=== PATIENT | male | born 1970 | race Hispanic/Latino ===

== ENCOUNTER 2019-09-08 11:35 | Emergency (ER) | payer OTHER, SELFPAY ==
--- NOTE | ~2019-09-08 | XR_ITS ---
EXAMINATION: XR wrist LT min 3V DATE: 09/08/2019 12:27 INDICATION: Left wrist pain. Fall. TECHNIQUE: 4 views of left wrist were obtained. COMPARISON: None. FINDINGS: Bone alignment is normal. No acute fracture. 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 There is a 3 mm fragment of heterotopic ossification dorsal to the distal radius. IMPRESSION: 1. No acute fracture. Reviewed, dictated and finalized at location A. LITIES DIRECTOR IMPRESSION: 1. No acute fracture.
--- NOTE | ~2019-09-08 | XR_ITS ---
EXAMINATION: XR wrist RT min 3V DATE: 09/08/2019 12:27 INDICATION: Right wrist pain. Fall. TECHNIQUE: 4 views of right wrist were obtained. COMPARISON: None. FINDINGS: Bone alignment is normal. No acute fracture. Joint spaces are normal. There is a 6 mm fragm ent of heterotopic ossification dorsal to the carpus. IMPRESSION: 1. No acute fracture. Reviewed, dictated and finalized at location A. ERS LICENSE EXAMINER IMPRESSION: 1. No acute fracture.
[2019-09-08 11:54] VITALS: BP 168/81; PULSE 80; RESP 16; TEMP 36.7; O2SAT 98
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
--- NOTE | 2019-09-08 13:13 | PC.NURSE ---
1154- Pt presents with home braces on bilateral wrists.
== END 2019-09-08 12:50 | disposition home or self-care (01) ==
PROVIDERS: Emergency Provider Registered Nurse; PCP Internal Medicine
DX: S63.502A Unspecified sprain of left wrist, initial encounter (principal); S66.912A Strain of unspecified muscle, fascia and tendon at wrist and hand level, left hand, initial encounter; W05.0XXA Fall from non-moving wheelchair, initial encounter; S63.501A Unspecified sprain of right wrist, initial encounter; S66.911A Strain of unspecified muscle, fascia and tendon at wrist and hand level, right hand, initial encounter; Z99.3 Dependence on wheelchair; G82.20 Paraplegia, unspecified; F17.200 Nicotine dependence, unspecified, uncomplicated
CPT/HCPCS: 73110; 99214; G0463

== ENCOUNTER → 2020-01-23 09:11 | Outpatient (CLI) | payer OTHER, SELFPAY ==
--- NOTE | ~2020-01-23 | XR_ITS ---
XR chest 2V DATE: 01/23/2020 09:30 INDICATION: Chest pain TECHNIQUE: AP and lateral views COMPARISON: 05/20/2004 2 view chest FINDINGS: Postoperative change of the chest is noted. Heart size is within normal range. No hilar or mediastinal enlargement is evident. No pulmonary infiltrate or consolidation, pleural effusion or pul monary vascular congestion or pneumothorax. IMPRESSION: Postoperative chest; no active cardiopulmonary disease Reviewed, dictated and finalized at location B.
== END ==
PROVIDERS: PCP Internal Medicine; Visit Provider Internal Medicine
DX: R07.89 Other chest pain (principal)
CPT/HCPCS: 71046

== ENCOUNTER → 2020-11-02 01:34 | Outpatient (CLI) | payer OTHER, SELFPAY ==
[2020-11-02 19:40] LABS: SARS-CoV-2 RNA PCR Negative
== END ==
PROVIDERS: PCP Internal Medicine; Visit Provider Internal Medicine Gastroenterology
DX: Z01.812 Encounter for preprocedural laboratory examination (principal); Z20.822 Contact with and (suspected) exposure to COVID-19
CPT/HCPCS: C9803; U0003; U0005

== ENCOUNTER 2020-11-05 01:12 | Day surgery (SDC) | payer OTHER, SELFPAY ==
[2020-10-23 14:58] VITALS: BMI 29.4
[2020-11-05 07:52] VITALS: BP 166/79; PULSE 83; RESP 18; TEMP 36.4; O2SAT 97; BMI 29.7
[2020-11-05] MEDS: LACTATED RINGERS 1,000 ML 150 ML IV CONT (08:05)
--- NOTE | 2020-11-05 08:30 | WPDANESEPPF ---
Anes - Initial Pre Proc Eval Procedure: Operation Date: 11/05/20 09:00 Proposed Procedures p Screening Colonoscopy - Gagan Pickard MD Date/Time: 11/05/20 08:30 Surgeon: Gagan Pickard MD Pre Op Diagnosis: Neoplasm Screening Patient Data Age: 50 Gender: M Height: 6 ft 2 in Weight: 105 kg Last Vital Signs Temp 97.6 F 11/05/20 07:52 Pulse 83 11/05/20 07:52 Resp 18 11/05/20 07:52 BP 166/79 H 11/05/20 07:52 Pulse Ox 97 11/05/20 07:52 Allergies Allergy/AdvReac Type Severity Reaction Status Date / Time Penicillins Allergy Unknown Hives Verified 11/05/20 07:51 Home Medications Medication Instructions Recorded Confirmed Type mometasone 50 mcg/actuation nasal 2 spray NASAL DAILY #17 gm 02/03/20 11/05/20 Rx spray amlodipine 5 mg tablet 5 mg PO DAILY #30 tablet 06/07/20 11/05/20 Rx atorvastatin 20 mg tablet 20 mg PO DAILY #90 tablet 06/07/20 11/05/20 Rx Patient hx anesthesia problems: none Family hx anesthesia problems: none PMFSH Past Medical History Medical History (Updated 06/25/20 @ 11:58 by FARTUN Tan) Hyperlipidemia Paraplegia Screening for colon cancer Surgical History Surgical History S/P aorta repair Family History Family History Father Patient's father is in good health Sibling Patient's sister is in good health Mother Family history of coronary artery disease Social History Social History Smoking packs per day: 0.5 Smoking cigarettes per day: 10.0 Years smoked: 30 Smoking pack-years: 15.00 Smoking status: Current every day smoker Tobacco type: cigarettes and cigars Second hand tobacco smoke exposure: No Alcohol intake: current Drinks per week: 6 Alcohol use details: BEER Living arrangements: alone Gender identity (if verbalized by the patient): Male Spiritual care concerns: No Anes - Eval Final PreProcedure Day of Procedure 11/05/20 08:30 Patient weight: overweight Heart: regular rate and rhythm Lungs: clear to auscultation Airway: Mallampati scale class II Neurological: alert and oriented Last oral intake: >/= 8 hours ASA classification: III Emergent: no Anesthetic plan: proceed Anesthesia type and monitoring: general GIVS and standard monitoring Informed Consent: The patient's anesthetic plan and its attendant risks and benefits were discussed with the patient/family/POA. Questions were solicited and answers provided to the satisfaction of the patient/family/POA.
--- NOTE | 2020-11-05 08:40 | PM.HPGS ---
History of Present Illness History of Present Illness Consent: Risks, benefits, and alternatives have been discussed and questions answered. Patient agrees to proceed with procedure. Chief complaint: Neoplasm Screening Narrative: Clifford Waterman is a 50 year old male here for first screening colonoscopy Review of Systems Constitutional: Constitutional: Denies headache(s) and Denies weakness Eyes: Eyes: Denies blurry vision ENT: Reports Normal hearing present, Denies headache(s) and Denies neck pain Cardiovascular: Cardiovascular: Denies chest pain and Denies dyspnea Respiratory: Respiratory: Denies dyspnea Gastrointestinal: Gastrointestinal: Reports no additional gastrointestinal complaints Genitourinary: Genitourinary: Denies dysuria Musculoskeletal: Musculoskeletal: Denies neck pain Integumentary/Breasts: Skin/Breast: Denies dry skin Neurologic: Reports Normal hearing present, Denies headache(s) and Denies weakness Psychiatric: Psychiatric: Denies anxiety Endocrine: Endocrine: Denies change in body appearance Hematologic/Lymphatic: Hematologic/Lymphatic: Denies easy bleeding Allergic/Immunologic: Allergic/Immunologic: Denies urticaria PMF Past Medical History Medical History (Updated 06/25/20 @ 11:58 by FARTUN Tan) Hyperlipidemia Paraplegia Screening for colon cancer Surgical History Surgical History S/P aorta repair Family History Family History Father Patient's father is in good health Sibling Patient's sister is in good health Mother Family history of coronary artery disease Social History Social History Smoking packs per day: 0.5 Smoking cigarettes per day: 10.0 Years smoked: 30 Smoking pack-years: 15.00 Smoking status: Current every day smoker Tobacco type: cigarettes and cigars Second hand tobacco smoke exposure: No Alcohol intake: current Drinks per week: 6 Alcohol use details: BEER Living arrangements: alone Gender identity (if verbalized by the patient): Male Spiritual care concerns: No Meds Home Medications and Allergies Home Medications Medication Instructions Recorded Confirmed Type mometasone 50 mcg/actuation nasal 2 spray NASAL DAILY #17 gm 02/03/20 11/05/20 Rx spray amlodipine 5 mg tablet 5 mg PO DAILY #30 tablet 06/07/20 11/05/20 Rx atorvastatin 20 mg tablet 20 mg PO DAILY #90 tablet 06/07/20 11/05/20 Rx Allergies Allergy/AdvReac Type Severity Reaction Status Date / Time Penicillins Allergy Unknown Hives Verified 11/05/20 07:51 Vital Signs Vital Signs - 24 hr 11/05/20 07:52 Temperature 97.6 F Pulse Rate 83 Respiratory Rate 18 Blood Pressure 166/79 H Pulse Oximetry 97 Exam Const: General: comfortable and no acute distress HENMT: General nose exam: Normal nares present Eyes: General: appearance normal, both eyes and all related structures Neck: Neck: no JVD Resp: Auscultation: clear to auscultation bilaterally Cardio: Rate: regular rate Rhythm: regular rhythm GI: Inspection: non-distended GI Palp: Yes Soft to palpation Skin: General skin exam: normal color Neuro: General: gait normal Speech: normal speech Extrem: General: normal to inspection Psych: Mental Status: mental status grossly normal Assessment and Plan Assessment and plan (1) Screening for colon cancer: Code(s): Z12.11 - Encounter for screening for malignant neoplasm of colon Status: Acute Assessment and Plan: colonoscopy
[2020-11-05 09:06] VITALS: BP 143/90; PULSE 79; RESP 17; O2SAT 99
[2020-11-05 09:16] VITALS: BP 168/108; PULSE 69; RESP 19; O2SAT 99
[2020-11-05 09:26] VITALS: BP 170/100; PULSE 68; RESP 14; O2SAT 100
== END 2020-11-05 09:35 | disposition home or self-care (01) ==
PROVIDERS: PCP Internal Medicine; Visit Provider Internal Medicine Gastroenterology
PROC: 0DJD8ZZ Inspection of Lower Intestinal Tract, Via Natural or Artificial Opening Endoscopic (ICD-10-PCS; CPT 45378; principal; 2020-11-05 09:00)
DX: Z12.11 Encounter for screening for malignant neoplasm of colon (principal); D12.4 Benign neoplasm of descending colon; K63.5 Polyp of colon; E78.5 Hyperlipidemia, unspecified; G82.20 Paraplegia, unspecified; F17.210 Nicotine dependence, cigarettes, uncomplicated; F17.290 Nicotine dependence, other tobacco product, uncomplicated
CPT/HCPCS: 45385; 88305; C9803; J2704; J7120; U0003; U0005

== ENCOUNTER 2022-02-28 12:12 | Emergency (ER) | payer OTHER, SELFPAY ==
--- NOTE | 2022-02-28 12:21 | ED.NECK ---
HPI - Neck Pain/Injury General Chief Complaint: Neck Pain/Injury Stated Complaint: Shoulder and Neck Pain Time Seen by Provider: 02/28/22 12:36 Source: patient and RN notes reviewed Mode of arrival: ambulatory Limitations: no limitations History of Present Illness HPI Narrative: 51-year-old male presents with 1 week 3 of neck and shoulder pain. He is paraplegic, uses a manual wheelchair. He denies injury or trauma. He reports he feels like his shoulder is swollen. He denies open skin or rash. He reports he has used ibuprofen, Tylenol, IcyHot, heat with little relief. He reports weakness in the shoulder when he raises his arm above shoulder height. He denies increased pain with range of motion MD complaint: neck pain and other Related Data Allergies Allergy/AdvReac Type Severity Reaction Status Date / Time Penicillins Allergy Unknown Hives Verified 02/28/22 12:25 Review of Systems Review of Systems: CONSTITUTIONAL: Denies malaise, chills, sweats, or fever. CARDIOVASCULAR: Denies chest pain, palpitations, or edema. RESPIRATORY: Denies cough or dyspnea. SKIN: Denies rash or itching, bruising, redness, swelling. MUSCULOSKELETAL: Reports right shoulder and neck pain NEUROLOGIC: Denies numbness, weakness All systems reviewed & are unremarkable except as noted in HPI and below PMFSH Past Medical History Medical History Hyperlipidemia Paraplegia Screening for colon cancer Surgical History Surgical History S/P aorta repair Family History Family History Father Patient's father is in good health Sibling Patient's sister is in good health Mother Family history of coronary artery disease Social History Social History Smoking packs per day: 0.5 Smoking cigarettes per day: 10.0 Years smoked: 30 Smoking pack-years: 15.00 Smoking status: Current every day smoker Tobacco type: cigarettes and cigars Second hand tobacco smoke exposure: Yes Alcohol intake: current Drinks per week: 6 Alcohol use details: BEER Gender identity (if verbalized by the patient): Male Spiritual care concerns: No Comments At time of signature, agree with nursing past medical, surgical, social and family history. There is no relevant family history pertinent to the presenting complaint Exam Narrative: GENERAL: Well-appearing, well-nourished, and in no acute distress. HEAD: Normocephalic, atraumatic. EYES: PERRLA, conjunctivae clear NECK: Supple. CHEST: Speaks in full sentences. No respiratory distress. HEART: Regular rate and rhythm. Normal and equal peripheral pulses. EXTREMITIES: Right upper extremity has normal sensation, grossly normal range of motion. Normal neck range of motion. Normal strength until the arm reaches shoulder height, limited strength at that height. No edema or ecchymosis. Normal sensation with sensitivity to light touch and pain. No point tenderness. No midline neck tenderness. No open wounds, no skin tenting, no devitalized tissue or atrophy, no trophic changes, no obvious deformity, alignment normal, nearby joints and structures intact. Distal pulses palpable and equal bilaterally, skin warm, dry, pink. Capillary refill less than 3 seconds. SKIN: Warm, dry, no rash. NEURO: Alert and oriented x3. PSYCH: Normal mood and affect Course Course Emergency Course: Patient is aware of diagnosis, understands and agrees to treatment plan. Anticipatory guidance given. Patient agrees to follow-up as directed and is aware of reasons to seek care at the emergency department. Portions of this record may have been created with voice recognition software Level of Care: Express Care Visit Vital Signs Vital signs: Vital Signs Temperature 97.7 F 02/28/22 12:23 Pulse Rate 79
[2022-02-28 12:23] VITALS: BP 137/79; PULSE 79; RESP 16; TEMP 36.5; O2SAT 100
== END 2022-02-28 12:50 | disposition home or self-care (01) ==
PROVIDERS: Emergency Provider Nurse Practitioner; PCP Internal Medicine
DX: M54.2 Cervicalgia (principal); M25.511 Pain in right shoulder; E78.5 Hyperlipidemia, unspecified; G82.20 Paraplegia, unspecified; F17.210 Nicotine dependence, cigarettes, uncomplicated; F17.290 Nicotine dependence, other tobacco product, uncomplicated
CPT/HCPCS: 99213; G0463

== ENCOUNTER → 2023-02-02 16:01 | Outpatient (CLI) | payer OTHER, SELFPAY ==
--- NOTE | ~2023-02-02 | XR_ITS ---
EXAMINATION: XR chest 2V Exam Date/Time: 02/02/2023 16:22 CDT HISTORY: R05.9 - Cough, unspecified Comparison: 01/23/2020. RESULT: Lines, tubes, and devices: Surgical clips over the mediastinum. Lungs and pleura: Hazy peripheral right mid and lower and left lower lung opacities likely due to ov erlying soft tissue artifact and similar to the prior study. Left upper lung scar. Otherwise clear. Cardiomediastinal silhouette: Stable. Other: No acute osseous or upper abdominal finding. IMPRESSION: No acute cardiopulmonary process. Reviewed, dictated and finalized at location K.
== END ==
PROVIDERS: PCP Nurse Practitioner Family; Visit Provider Nurse Practitioner Family
DX: R05.9 Cough, unspecified (principal)
CPT/HCPCS: 71046